=== PATIENT | female | born 1960 | race Caucasian/White ===

== ENCOUNTER 2018-05-13 22:49 | Inpatient (IN) ==
[2018-05-14] MEDS ORDERED: fentaNYL Citrate Inj 100 MCG/2 ML Ampul ONE (02:14)
[2018-05-14] MEDS ORDERED: Bisacodyl 10 MG Supp RECTAL PRN (03:55)
[2018-05-14] MEDS ORDERED: Acetaminophen 325 MG Tablet PO PRN (03:56)
[2018-05-14] MEDS ORDERED: Labetalol HCl Inj 100 MG/20 ML Vial IV.PUSH PRN (04:00)
[2018-05-14] MEDS ORDERED: Chlorhexidine Gluconate 2% 1 Pack (2 Cloths) TOPICAL PRN (04:00)
[2018-05-14] MEDS ORDERED: niCARdipine Inj 25 MG in Sodium Chlor 0.9% Inj 240 ML IV.CONT PRN (04:00)
[2018-05-14] MEDS ORDERED: Dextrose 50% in Water 50 ML Vial IV.PUSH PRN ×2 (04:00→04:05)
[2018-05-14] MEDS ORDERED: Morphine Inj 4 MG/ML Vial IV.PUSH PRN (04:45)
[2018-05-14] MEDS: Sod Chloride 0.9% Inj 1,000 ML IV.CONT SCH ×2 (07:00→15:49)
[2018-05-14 07:02] LABS: Alanine Aminotransferase 18 U/L (10-53); Albumin 3.2 g/dL (3.4-5.0); Anion Gap 10 meq/L (5-15); Aspartate Aminotransferase 22 U/L (15-37); Blood Urea Nitrogen 12 mg/dL (7-18); Calcium 8.1 mg/dL (8.5-10.1); Carbon Dioxide 23.3 meq/L (21.0-32.0); Chloride 111 meq/L (98-107); Cholesterol 191 mg/dL (120-200); Glomerular Filtration Rate Greater Than 89 mL/min (>89); Glucose,Random 87 mg/dL (74-106); Magnesium 1.9 mg/dL (1.5-2.5); Potassium 4.1 meq/L (3.5-5.1); Sodium 144 meq/L (136-145); Triglycerides 223 mg/dL (42-150)
[2018-05-14 07:04] LABS: Alkaline Phosphatase 56 U/L (45-117); Chol/HDL Ratio 4.84 Ratio; HDL Cholesterol 39.4 mg/dL (40.0-60.0); LDL Cholesterol,Calculated 107 mg/dL (0-99); Total Protein 6.6 g/dL (6.4-8.2)
[2018-05-14] MEDS: Senna/Docusate Sodium 8.6/50 MG Tablet PO SCH ×2 (08:47→22:37)
[2018-05-14 12:00] LABS: Baso # (Auto) 0.1 th/mm3 (0.0-0.2); Eos # (Auto) 0.1 th/mm3 (0.0-0.4); Eos % (Auto) 0.9 % (0.0-4.0); Hematocrit 46.9 % (35.0-46.0); Hemoglobin 15.5 gm/dL (11.6-15.3); Lymph # (Auto) 2.3 th/mm3 (1.0-4.8); Lymph % (Auto) 18.3 % (9.0-44.0); Mean Corpuscular HGB Conc 33.1 % (32.0-36.0); Mean Corpuscular Volume 90.5 fL (80.0-100.0); Mean Platelet Volume 7.3 fL (7.0-11.0); Mono # (Auto) 0.7 th/mm3 (0.0-0.9); Mono % (Auto) 5.2 % (0.0-8.0); Neut # (Auto) 9.4 th/mm3 (1.8-7.7); Neut % (Auto) 74.6 % (16.0-70.0); Platelet Count 267 th/mm3 (150-450); Red Blood Count 5.18 mil/mm3 (4.00-5.30); White Blood Count 12.6 th/mm3 (4.0-11.0)
[2018-05-14 12:13] LABS: Activated Partial Thrombo Time 26.2 sec (24.3-30.1); INR 1.1 Ratio; Prothrombin Time 10.9 sec (9.8-11.6)
[2018-05-14 12:17] LABS: CKMB Percent 1.8 % (0.0-4.0); Creatine Kinase MB 7.1 ng/mL (0.5-3.6)
[2018-05-14] MEDS: Insulin NovoLOG Aspart Correctional Sugar Inj SQ SCH ×3 (12:54→17:11)
[2018-05-14 14:21] LABS: Chol/HDL Ratio 3.98 Ratio; HDL Cholesterol 48.7 mg/dL (40.0-60.0)
[2018-05-14 14:27] LABS: Thyroid Stimulating Hormone 0.544 uIU/mL (0.358-3.740)
--- NOTE | 2018-05-14 17:09 | P.PNIM ---
Subjective Interval history: Pt was brought in last night after acute onset of left facial droop, difficulty with speech and left sided weakness Pt was found to have a right MCA occlusion and pt was given TPA and admitted to [facility] Today she is moving all extremities, denies any weakness. Her speech is fluent Pt was signed out to the [facility] today Physical Exam Vital signs: Vital Signs 05/14/18 04:19 05/14/18 07:00 05/14/18 08:00 Temperature 98.5 F 98.5 F Pulse Rate 81 100 H Respiratory Rate 19 16 Blood Pressure 120/54 L 96/42 L Pulse Oximetry 97 05/14/18 10:00 05/14/18 14:00 Temperature Pulse Rate 74 Respiratory Rate 20 Blood Pressure 95/74 L Pulse Oximetry 100 Intake & Output 05/13/18 05/14/18 05/14/18 18:59 06:59 18:59 Intake Total 770 / 770 Balance 770 / 770 Weight 74.4 kg Intake: IV 770 / 770 NS Inj 1,000 ML @ 84 mls/hr IV. 770 / 770 CONT .[id number] [facility] Rx#:[id number] Other: Weight On Admission 74.4 kg Narrative: General: NAD, AAOx3 Chest: CTA Cardiac: Regular Abd: +BS, soft ND/NT Ext: No edema Neuro: HURST, speech fluent, strength equal bilaterally in upper and lower extremities - Urinary Catheter Management Indwelling Urethral Catheter Cath placed during this visit: yes, but has since been removed by the nurse Reason for continuing: Decision to DC catheter Removal date: 05/15/18 Removal time: 10:30 Results - Labs CBC & Chem 7: 05/15/18 06:30 05/15/18 06:30 Laboratory Results - last 24 hr 05/13/18 05/13/18 05/14/18 22:35 22:35 06:20 WBC 10.2 RBC 5.31 H Hgb 16.4 H POC Hgb 16.3 H Hct 48.2 H POC Hct 48.0 H MCV 90.8 MCH 30.9 MCHC 34.0 RDW 13.2 Plt Count 282 MPV 7.3 Neut % (Auto) 40.3 Lymph % (Auto) 49.4 H [place] % (Auto) 5.9 Eos % (Auto) 3.1 Baso % (Auto) 1.3 Neut # (Auto) 4.1 Lymph # (Auto) 5.0 H [place] # (Auto) 0.6 Eos # (Auto) 0.3 Baso # (Auto) 0.1 CBC Comment AUTO DIFF WBC Differential Differential Comment ESR PT INR APTT POC Sodium 141 Sodium POC Potassium 4.8 Potassium POC Chloride 104 Chloride Carbon Dioxide Anion Gap BUN POC BUN 17 Creatinine POC Creatinine 1.0 Estimated GFR POC Glucose 96 Random Glucose Lactic Acid Calcium Phosphorus Magnesium Total Bilirubin Cancelled Direct Bilirubin Cancelled Indirect Bilirubin Cancelled AST Cancelled ALT Cancelled Alkaline Phosphatase Cancelled Ammonia Total Creatine Kinase 389 H CK-MB (CK-2) 7.1 H CK-MB (CK-2) % 1.8 Troponin I Total Protein Cancelled Albumin Cancelled Triglycerides Cholesterol LDL Cholesterol, Calc HDL Cholesterol Cholesterol/HDL Ratio TSH 05/14/18 05/14/18 05/14/18 06:20 06:20 11:41 WBC RBC Hgb POC Hgb Hct POC Hct MCV MCH MCHC RDW Plt Count MPV Neut % (Auto) Lymph % (Auto) [place] % (Auto) Eos % (Auto) Baso % (Auto) Neut # (Auto) Lymph # (Auto) [place] # (Auto) Eos # (Auto) Baso # (Auto) CBC Comment WBC Differential Differential Comment ESR PT INR APTT POC Sodium Sodium 144 POC Potassium Potassium 4.1 POC Chloride Chloride 111 H Carbon Dioxide 23.3 Anion Gap 10 BUN 12 POC BUN Creatinine 0.61 POC Creatinine Estimated GFR Greater than 89 POC Glucose Random Glucose 87 Lactic Acid 1.2 Calcium 8.1 L Phosphorus 4.0 Magnesium 1.9 Total Bilirubin 0.3 Direct Bilirubin Indirect Bilirubin AST 22 ALT 18 Alkaline Phosphatase 56 Ammonia 15 Total Creatine Kinase CK-MB (CK-2) CK-MB (CK-2) % Troponin I Total Protein 6.6 Albumin 3.2 L Triglycerides 223 H Cholesterol 191 LDL Cholesterol, Calc 107 H HDL Cholesterol 39.4 L Cholesterol/HDL Ratio 4.84 TSH 05/14/18 05/14/18 05/14/18 11:41 11:41 11:41 WBC 12.6 H RBC 5.18 Hgb 15.5 H POC Hgb Hct 46.9 H POC Hct MCV 90.5 MCH 30.0 MCHC 33.1 RDW 13.0 Plt Count 267 MPV 7.3 Neut % (Auto) 74.6 H Lymph % (Auto) 18.3 [place] % (Auto) 5.2 Eos % (Auto) 0.9 Baso % (Auto) 1.0 Neut # (Auto) 9.4 H Lymph # (Auto) 2.3 [place] # (Auto) 0.7 Eos # (Auto) 0.1 Baso # (Auto) 0.1 CBC Comment WBC Differential . Differential Comment Auto diff final ESR 9 PT 10.9 INR 1.1 APTT 26.2 POC Sodium Sodium POC Potassium Potassium POC Chloride Chloride Carbon Dioxide Anion Gap BUN POC BUN Creatinine POC Creatinine Estimated GFR POC Glucose Random Glucose Lactic Acid Calcium Phosphorus Magnesium Total Bilirubin Direct Bilirubin Indirect Bilirubin AST ALT Alkaline Phosphatase Ammonia Total Creatine Kinase CK-MB (CK-2) CK-MB (CK-2) % Troponin I Total Protein Albumin Triglycerides Cholesterol LDL Cholesterol, Calc HDL Cholesterol Cholesterol/HDL Ratio TSH 05/14/18 05/14/18 11:41 11:41 WBC RBC Hgb POC Hgb Hct POC Hct MCV MCH MCHC RDW Plt Count MPV Neut % (Auto) Lymph % (Auto) [place] % (Auto) Eos % (Auto) Baso % (Auto) Neut # (Auto) Lymph # (Auto) [place] # (Auto) Eos # (Auto) Baso # (Auto) CBC Comment WBC Differential Differential Comment ESR PT INR APTT POC Sodium Sodium POC Potassium Potassium POC Chloride Chloride Carbon Dioxide Anion Gap BUN POC BUN Creatinine POC Creatinine Estimated GFR POC Glucose Random Glucose Lactic Acid Calcium Phosphorus Magnesium Total Bilirubin Direct Bilirubin Indirect Bilirubin AST ALT Alkaline Phosphatase Ammonia Total Creatine Kinase CK-MB (CK-2) CK-MB (CK-2) % Troponin I Less than 0.02 L Total Protein Albumin Triglycerides 112 Cholesterol 194 LDL Cholesterol, Calc 123 H HDL Cholesterol 48.7 Cholesterol/HDL Ratio 3.98 TSH 0.544 Assessment and Plan - Assessment (1) CVA (cerebral vascular accident) Code(s): I63.9 - Cerebral infarction, unspecified Status: Acute Plan: Right MCA CVA - Pt is a 57 y/o female with hypertension, hyperlipidemia, ongoing tobaccoism and alcohol abuse. She was admitted on 05/13/18 after being found by a friend with acute onset of left-sided weakness, facial droop and dysarthria. Patient was drinking alcohol that night and reportedly smelled of alcohol at the admission. She - CT brain (05/13) --> no acute intracranial findings. - CT angiogram of the brain (05/13) --> a right MCA occlusion 1.6 cm from takeoff. - Neurology was consulted. - Pt was given Alteplase 6.8 mg bolus followed by 51.1 mg and admitted to [facility]. - Carotid Doppler ordered - 2D echocardiogram ordered - Hemoglobin A1c is pending - Lipid panel reviewed, Triglycerides 223, LDL is 107 - ASA 325mg daily - Goal systolic blood pressure less than 180, diastolic blood pressure less than 105 - Neuro checks. - Seizure precautions - MRI/MRA brain ordered EtOH Abuse - Pt reports that she drinks around 4 alcoholic mixed drinks every Tuesday but otherwise does not drink alcohol - Pt was given vitamin bag in [facility] and then given thiamine, folate and multivitamin daily - Monitor for withdrawal/DTs - Ativan PRN HTN - BP has been running low/normal - PRN BP control to maintain goal systolic blood pressure less than 180, diastolic blood pressure less than 105 - Pt takes Lisinopril 10mg daily at home Hyperlipidemia - Start statin (2) ETOH abuse Code(s): F10.10 - Alcohol abuse, uncomplicated Status: Chronic (3) HTN (hypertension) Code(s): I10 - Essential (primary) hypertension Status: Chronic (4) Hyperlipidemia Code(s): E78.5 - Hyperlipidemia, unspecified Status: Chronic (5) Tobacco abuse Code(s): Z72.0 - Tobacco use Status: Chronic - Attending Attestation Patient examined. Assessment and plan formulated with Cristin Copeland PA-C. I agree with the above. Progress Note: Quality - VTE Deep Vein Thrombosis/Pulmonary Embolism Present on Admission: No (1) CVA (cerebral vascular accident) Qualifiers: Precerebral and cerebral artery: middle cerebral artery Laterality of affected vessel: right
--- NOTE | 2018-05-15 00:05 | ECG ---
Date Performed: 05/14/2018 Time Performed: 09:12:09 PTAGE: 57 years EKG: Sinus rhythm LOW QRS VOLTAGE IN PRECORDIAL LEADS POSSIBLE INFERIOR MYOCARDIAL INFARCTION , OF INDETERMINATE AGE A BNORMAL ECG PREVIOUS TRACING : 05/13/2018 23.22 Since the previous tracing, no significant change noted DOCTOR: Renato Hester Interpretating Date/Time 05/15/2018 00:04:40
[2018-05-15 06:55] LABS: Baso # (Auto) 0.1 th/mm3 (0.0-0.2); Eos # (Auto) 0.1 th/mm3 (0.0-0.4); Hemoglobin 14.5 gm/dL (11.6-15.3); Lymph # (Auto) 1.6 th/mm3 (1.0-4.8); Lymph % (Auto) 22.2 % (9.0-44.0); Mean Corpuscular HGB Conc 33.8 % (32.0-36.0); Mean Corpuscular Hemoglobin 30.4 pg (27.0-34.0); Mean Platelet Volume 7.4 fL (7.0-11.0); Mono # (Auto) 0.6 th/mm3 (0.0-0.9); Mono % (Auto) 9.1 % (0.0-8.0); Neut # (Auto) 4.6 th/mm3 (1.8-7.7); Neut % (Auto) 65.7 % (16.0-70.0); Platelet Count 241 th/mm3 (150-450); Red Blood Count 4.78 mil/mm3 (4.00-5.30)
--- NOTE | 2018-05-15 08:15 | P.PNNEU ---
Subjective Subjective Comments: No acute events reported sr Active Medications: Active Medications Generic Name Dose Route Start Last Admin Trade Name Freq PRN Reason Stop Dose Admin Acetaminophen 650 mg 05/14/18 03:56 Tylenol PO Q6H PRN PAIN 1-10 AND/OR FEVER >101F Hydrocodone Bitart/Acetaminophen 1 tab 05/14/18 03:56 Wever 5/325 PO Q4H PRN PAIN SCALE 1 TO 5 Al Hydroxide/Mg Hydroxide 30 ml 05/14/18 03:55 Milk Of Magnesia Liq PO Q12H PRN Mild Constipation Albuterol 2.5 mg 05/14/18 06:00 Albuterol Neb (Prn) NEB Q2HR NEB PRN SHORTNESS OF BREATH Aspirin 325 mg 05/15/18 02:10 Ecotrin PO DAILY [facility] Bisacodyl 10 mg 05/14/18 03:55 Dulcolax Supp RECTAL DAILY PRN SEVERE CONSITIPATION Chlorhexidine Gluconate 3 pack 05/14/18 04:00 Chlorhexidine 2% Cloth TOPICAL 05/19/18 03:59 DAILY@0400 [facility] Chlorhexidine Gluconate 3 pack 05/14/18 04:00 Chlorhexidine 2% Cloth TOPICAL 05/19/18 03:59 DAILY@0400 PRN Extra cloth needed Dextrose 50 ml 05/14/18 04:05 D50w Vial IV.PUSH UNSCH PRN PER HYPOGLYCEMIA PROTOCOL Enalaprilat 1.25 mg 05/14/18 04:00 Vasotec Inj IV.PUSH Q4H PRN SBP > 180, DBP > 105 Glucagon 1 mg 05/14/18 04:05 Glucagon Inj OTHER PRN PRN for Hypoglycemia Protocol Sodium Chloride 1,000 mls @ 84 mls/hr 05/14/18 04:00 05/14/18 15:49 Ns Inj IV.CONT 84 mls/hr .[id number] [facility] Administration Nicardipine HCl 25 mg/ Sodium 250 mls @ 50 mls/hr 05/14/18 04:00 Chloride IV.CONT TITRATE PRN Per Protocol Protocol 5 MG/HR Insulin Aspart 0 unit 05/14/18 06:00 05/14/18 17:11 Novolog Insulin Suppl Scale Inj SQ Not Given Q6HR [facility] Protocol Labetalol HCl 10 mg 05/14/18 04:00 Trandate Inj IV.PUSH Q2H PRN SBP>180, DBP>100, HR>65 Lactulose 30 ml 05/14/18 03:55 Lactulose Liq PO DAILY PRN SEVERE CONSITIPATION Lorazepam 1 mg 05/14/18 18:09 Ativan Inj IV.PUSH Q4H PRN AGITATION AND/OR HALLUCINATION Morphine Sulfate 2 mg 05/14/18 04:45 Morphine Inj IV.PUSH Q2H PRN PAIN SCALE 6 TO 10 Ondansetron HCl 4 mg 05/14/18 04:45 Zofran Odt PO Q6H PRN NAUSEA OR VOMITING Pantoprazole Sodium 40 mg 05/14/18 09:00 05/14/18 08:47 Protonix PO 40 mg DAILY [facility] Administration Senna/Docusate Sodium 1 tab 05/14/18 09:00 05/14/18 22:37 Rona-Colace PO Not Given BID [facility] Sennosides 17.2 mg 05/14/18 03:55 Senokot PO Q12H PRN Moderate Constipation Sodium Chloride 2 ml 05/14/18 09:00 05/14/18 22:38 Ns Flush IV.FLUSH Not Given BID [facility] Sodium Chloride 2 ml 05/14/18 03:55 Ns Flush IV.FLUSH PRN PRN FLUSH AFTER USING IV ACCESS Allergies/Adverse Reactions: Allergies Allergy/AdvReac Type Severity Reaction Status Date / Time No Known Allergies Allergy Unverified 05/14/18 03:30 Physical Exam Vital signs: Vital Signs 05/14/18 10:00 05/14/18 14:00 05/14/18 18:00 Temperature 98.9 F Pulse Rate 74 84 Respiratory Rate 20 19 Blood Pressure 95/74 L 133/78 Pulse Oximetry 100 05/14/18 20:00 05/14/18 22:00 05/15/18 00:00 Temperature 98.0 F 98.1 F Pulse Rate 73 75 77 Respiratory Rate 15 22 Blood Pressure 142/62 H 137/63 Pulse Oximetry 05/15/18 02:00 05/15/18 04:00 05/15/18 06:00 Temperature 98.0 F Pulse Rate 81 77 82 Respiratory Rate 20 Blood Pressure 120/60 Pulse Oximetry Intake & Output 05/14/18 05/15/18 05/15/18 18:59 06:59 18:59 Intake Total 770 / 770 Output Total 0 / 0 1300 / 1300 Balance 770 / 770 -1300 / -1300 Intake: IV 770 / 770 NS Inj 1,000 ML @ 84 mls/hr IV. 770 / 770 CONT .[id number] [facility] Rx#:[id number] Output: Urine 1000 / 1000 Stool 0 / 0 300 / 300 Narrative: alert awake moves all well disinhibited still some left arm dss left neglect Objective Laboratory Results - last 24 hr 05/14/18 05/14/18 05/14/18 06:20 11:41 11:41 WBC RBC Hgb Hct MCV MCH MCHC RDW Plt Count MPV Neut % (Auto) Lymph % (Auto) [place] % (Auto) Eos % (Auto) Baso % (Auto) Neut # (Auto) Lymph # (Auto) [place] # (Auto) Eos # (Auto) Baso # (Auto) WBC Differential Differential Comment ESR PT 10.9 INR 1.1 APTT 26.2 POC Glucose Lactic Acid 1.2 CK-MB (CK-2) 7.1 H CK-MB (CK-2) % 1.8 Troponin I Triglycerides Cholesterol LDL Cholesterol, Calc HDL Cholesterol Cholesterol/HDL Ratio TSH 05/14/18 05/14/18 05/14/18 11:41 11:41 11:41 WBC 12.6 H RBC 5.18 Hgb 15.5 H Hct 46.9 H MCV 90.5 MCH 30.0 MCHC 33.1 RDW 13.0 Plt Count 267 MPV 7.3 Neut % (Auto) 74.6 H Lymph % (Auto) 18.3 [place] % (Auto) 5.2 Eos % (Auto) 0.9 Baso % (Auto) 1.0 Neut # (Auto) 9.4 H Lymph # (Auto) 2.3 [place] # (Auto) 0.7 Eos # (Auto) 0.1 Baso # (Auto) 0.1 WBC Differential . Differential Comment Auto diff final ESR 9 PT INR APTT POC Glucose Lactic Acid CK-MB (CK-2) CK-MB (CK-2) % Troponin I Less than 0.02 L Triglycerides Cholesterol LDL Cholesterol, Calc HDL Cholesterol Cholesterol/HDL Ratio TSH 0.544 05/14/18 05/14/18 05/15/18 11:41 17:08 06:30 WBC 7.0 RBC 4.78 Hgb 14.5 Hct 43.0 MCV 90.0 MCH 30.4 MCHC 33.8 RDW 13.0 Plt Count 241 MPV 7.4 Neut % (Auto) 65.7 Lymph % (Auto) 22.2 [place] % (Auto) 9.1 H Eos % (Auto) 2.0 Baso % (Auto) 1.0 Neut # (Auto) 4.6 Lymph # (Auto) 1.6 [place] # (Auto) 0.6 Eos # (Auto) 0.1 Baso # (Auto) 0.1 WBC Differential . Differential Comment Auto diff final ESR PT INR APTT POC Glucose 110 Lactic Acid CK-MB (CK-2) CK-MB (CK-2) % Troponin I Triglycerides 112 Cholesterol 194 LDL Cholesterol, Calc 123 H HDL Cholesterol 48.7 Cholesterol/HDL Ratio 3.98 TSH 05/15/18 06:30 WBC RBC Hgb Hct MCV MCH MCHC RDW Plt Count MPV Neut % (Auto) Lymph % (Auto) [place] % (Auto) Eos % (Auto) Baso % (Auto) Neut # (Auto) Lymph # (Auto) [place] # (Auto) Eos # (Auto) Baso # (Auto) WBC Differential Differential Comment ESR PT INR APTT POC Glucose Lactic Acid 0.6 CK-MB (CK-2) CK-MB (CK-2) % Troponin I Triglycerides Cholesterol LDL Cholesterol, Calc HDL Cholesterol Cholesterol/HDL Ratio TSH Review/Management - Review/Management Plan: imp r mca clot cleared on asa needs statin started by med team mri/a echo holter hypercoag pend trop neg call me later with echo and mri results
--- NOTE | 2018-05-15 08:40 | MB ---
cc: Goran Harden MD DATE: 05/14/2018 HISTORY OF PRESENT ILLNESS: A 57-year-old left-handed woman with hypertension. Otherwise, she has been very healthy. She does not take an aspirin a day and she came in as a stroke alert last evening, had fallen down, although she was quite intoxicated with alcohol with left-sided weakness. Her NIH stroke scale was 13. As such, she had a CT scan of the brain done, which was negative. TPA was started. A CTA showed a right MCA clot and she was sent to interventional. MEDICATIONS AT HOME: Lisinopril. ALLERGIES: NO KNOWN DRUG ALLERGIES. REVIEW OF SYSTEMS: She denies any diabetes, hypercholesterolemia, [place], stent, angioplasty, AFib, Coumadin, chest pain, palpitations, renal, hepatic, pulmonary disease, thyroid disease, lupus, ulcer, cancer, seizure, stroke. SOCIAL HISTORY: She is a smoker and I have asked her to quit. She is not a drinker, she says regularly. She drinks about once a week, but she says at times so drunk she might fall down. Lives with her fiance. [place] insurance. Drives in her car and goes to different businesses. FAMILY HISTORY: Positive for cancer and also in her daughter cancer who with White sarcoma. Negative for seizure or stroke, possibly some carotid disease in her father. DATA: CTA of the brain did show an occlusion of the right middle cerebral artery. EKG shows sinus rhythm. I did talk with Dr. Castelan this morning who did the case and he said she did have the right MCA clot and he was able to extract that and everything cleared and good flow beyond that. PHYSICAL EXAMINATION: VITAL SIGNS: She has been in sinus rhythm. The vital signs 111/80, pulse of 100. NECK: There are no carotid bruits. HEART: Regular rhythm. I did not detect a murmur. NEUROLOGIC: Pupils are equal. Visual abdi full. Extraocular movements intact without nystagmus. Face is symmetric with normal sensation. Tongue was midline. There is no drift. Normal strength in upper and lower extremities bilaterally. DTRs are trace throughout. Toes downgoing bilaterally. Pinprick was intact throughout. With double simultaneous stimuli she neglected the left side. Not ataxic on [id number]. Speech is fluent. She is not aphasic. She is oriented x3, a little disinhibited. LABORATORY DATA: CBC is normal. Basic metabolic profile essentially normal. LFTs normal. CPK was 389. Ammonia level normal. LDL cholesterol 107. CURRENT MEDICATIONS: She is on Tylenol, hydrocodone p.r.n. IMAGING STUDIES: CT of the brain I reviewed shows a lot of white matter changes bilaterally. CTA does not appear to have any major carotid disease. There is some calcification, appears down at the origin of the common carotid artery. There was an abrupt occlusion at the distal portion of the middle cerebral artery on the right side at that time. Arteriogram is not available on the current system. ASSESSMENT AND PLAN: Right middle cerebral artery infarct. We will have to do a stroke workup and treat her just with an aspirin for right now. Depending on what we find for the further workup. MD JAYA Dawson/LUZ , 08:52 AM , 09:15 AM
[2018-05-15] MEDS: Chlorhexidine Gluconate 2% 1 Pack (2 Cloths) TOPICAL SCH ×2 (08:43→08:47)
[2018-05-15] MEDS: Sod Chloride 0.9% Inj 1,000 ML IV.CONT SCH ×2 (08:46→14:59)
[2018-05-15] MEDS: Senna/Docusate Sodium 8.6/50 MG Tablet PO SCH ×2 (08:48→22:05)
[2018-05-15 08:52] LABS: Alanine Aminotransferase 18 U/L (10-53); Alkaline Phosphatase 57 U/L (45-117); Anion Gap 10 meq/L (5-15); Aspartate Aminotransferase 22 U/L (15-37); Blood Urea Nitrogen 9 mg/dL (7-18); Calcium 8.5 mg/dL (8.5-10.1); Carbon Dioxide 25.4 meq/L (21.0-32.0); Chloride 109 meq/L (98-107); Glomerular Filtration Rate Greater Than 89 mL/min (>89); Glucose,Random 118 mg/dL (74-106); Magnesium 1.9 mg/dL (1.5-2.5); Phosphorus 2.8 mg/dL (2.5-4.9); Potassium 4.1 meq/L (3.5-5.1); Sodium 144 meq/L (136-145); Total Protein 6.4 g/dL (6.4-8.2)
--- NOTE | 2018-05-15 10:08 | MR ---
EXAM DATE: 05/15/2018 9:29 AM EDT AGE/SEX: 57 years / Female INDICATIONS: Left sided weakness. CLINICAL DATA: This is the patient's initial encounter. Patient reports that signs and symptoms have been present for 1 day and indicates a pain score of 0/10. MEDICAL/SURGICAL HISTORY: Hypertension. section. Cholecystectomy. Left total hip arth roplasty [place] [facility] [place]. . TECHNIQUE: Multiplanar, multisequence examination of the brain was performed without and with 15 ml O mniscan (gadodiamide) contrast as a single exam dose. FINDINGS: Evolving right temporal parietal stroke. No evidence of associated hemorrhage. No evidence of brain m ass. Slight stable developmental asymmetry of the ventricles. No abnormal extra-axial fluid accumulat ion. Left hemisphere is intact and unremarkable. Posterior fossa and brainstem structures are unremar kable. No abnormal parenchymal contrast enhancement identified. Normal enhancement in the intracrania l vascular structures. CONCLUSION: Evolving right temporal parietal stroke Electronically signed by: Quirino Castelan MD 05/15/2018 10:07 AM EDT
--- NOTE | 2018-05-15 10:31 | MR ---
EXAM DATE: 05/15/2018 9:30 AM EDT AGE/SEX: 57 years / Female INDICATIONS: Left sided weakness. CLINICAL DATA: This is the patient's initial encounter. Patient reports that signs and symptoms have been present for 1 day and indicates a pain score of 0/10. MEDICAL/SURGICAL HISTORY: Hypertension. Cholecystectomy. section. Left total hip arth roplasty. [place] [facility] [place]. . TECHNIQUE: 3D [id number] MRA was performed. Source images, multiplanar STS MIP, and 3D volum e MIP reconstructions were reviewed. FINDINGS: There is moderate stenotic narrowing at the right MCA bifurcation just distal to the anterior tempora l branch. Branch vessels beyond this are intact and unremarkable with essentially normal flow related enhancement. The [place] of [place] vessels are otherwise intact and unremarkable. There is no evidenc e of aneurysm or vascular malformation. CONCLUSION: Residual or recurrent stenotic narrowing at the right MCA bifurcation which appears moderate in sever ity Electronically signed by: Quirino Castelan MD 05/15/2018 10:30 AM EDT
[2018-05-15 11:14] LABS: Bacteria,Urine Rare /hpf; Bilirubin,Urine Negative (Negative); Clarity,Urine Clear (Clear); Color,Urine Yellow (Yellw/Straw); Glucose,Urine (UA) Negative (Negative); Leukocyte Esterase,Urine Moderate (Negative); Mucus,Urine Few /lpf (Occasional); Nitrite,Urine Negative (Negative); Specific Gravity,Urine 1.006 (1.002-1.035)
[2018-05-15 11:15] LABS: Activated Partial Thrombo Time 26.5 sec (24.3-30.1); INR 1.1 Ratio; Prothrombin Time 10.9 sec (9.8-11.6)
[2018-05-15] MEDS ORDERED: Gadodiamide PF Inj 287 MG/ML 5 ML Syringe (for RAD MRI) IV.PUSH ONE (11:41)
[2018-05-15 14:00] LABS: Amphetamine Screen,Urine Neg (Neg); Barbiturate Screen,Urine Neg (Neg); Cannabinoid Screen,Urine Neg (Neg); Cocaine Screen,Urine Neg (Neg); Opiate Screen,Urine Neg (Neg)
[2018-05-15] MEDS: Insulin NovoLOG Aspart Correctional Sugar Inj SQ SCH ×3 (14:56→17:14)
--- NOTE | 2018-05-15 17:44 | P.PNIM ---
Subjective Interval history: No new complaints. Physical Exam Vital signs: Vital Signs 05/14/18 18:00 05/14/18 20:00 05/14/18 22:00 Temperature 98.9 F 98.0 F Pulse Rate 84 73 75 Respiratory Rate 19 15 Blood Pressure 133/78 142/62 H Pulse Oximetry 05/15/18 00:00 05/15/18 02:00 05/15/18 04:00 Temperature 98.1 F 98.0 F Pulse Rate 77 81 77 Respiratory Rate 22 20 Blood Pressure 137/63 120/60 Pulse Oximetry 05/15/18 06:00 05/15/18 08:00 05/15/18 08:40 Temperature 99.9 F H Pulse Rate 82 75 Respiratory Rate 19 Blood Pressure 110/74 Pulse Oximetry 96 96 05/15/18 12:00 05/15/18 16:00 Temperature 99.8 F H 99.8 F H Pulse Rate 74 66 Respiratory Rate 20 21 Blood Pressure 138/64 154/85 H Pulse Oximetry 97 96 Intake & Output 05/14/18 05/15/18 05/15/18 18:59 06:59 18:59 Intake Total 770 / 770 Output Total 0 / 0 1300 / 1300 1200 / 1200 Balance 770 / 770 -1300 / -1300 -1200 / -1200 Intake: IV 770 / 770 NS Inj 1,000 ML @ 84 mls/hr IV. 770 / 770 CONT .[id number] [facility] Rx#:[id number] Output: Urine 1000 / 1000 Stool 0 / 0 300 / 300 Urine Amount (Catheter) 1200 / 1200 Indwelling Urethral Catheter 1200 / 1200 Narrative: GENERAL: This is a well-nourished, well-developed patient, in no apparent distress. CARDIOVASCULAR: Regular rate and rhythm without murmurs, gallops, or rubs. RESPIRATORY: Clear to auscultation. Breath sounds equal bilaterally. No wheezes , rales, or rhonchi. GASTROINTESTINAL: Abdomen soft, non-tender, nondistended. Normal active bowel sounds MUSCULOSKELETAL: Extremities without clubbing, cyanosis, or edema. NEURO: Alert & Oriented x4 to person, place, time, situation. Moves all ext x4 - Urinary Catheter Management Indwelling Urethral Catheter Cath placed during this visit: yes, but has since been removed by the nurse Removal date: 05/15/18 Removal time: 10:30 Results - Labs CBC & Chem 7: 05/15/18 06:30 05/15/18 06:30 Laboratory Results - last 24 hr 05/15/18 05/15/18 05/15/18 06:30 06:30 06:30 WBC 7.0 RBC 4.78 Hgb 14.5 Hct 43.0 MCV 90.0 MCH 30.4 MCHC 33.8 RDW 13.0 Plt Count 241 MPV 7.4 Neut % (Auto) 65.7 Lymph % (Auto) 22.2 Giles % (Auto) 9.1 H Eos % (Auto) 2.0 Baso % (Auto) 1.0 Neut # (Auto) 4.6 Lymph # (Auto) 1.6 Giles # (Auto) 0.6 Eos # (Auto) 0.1 Baso # (Auto) 0.1 WBC Differential . Differential Comment Auto diff final PT INR APTT Sodium 144 Potassium 4.1 Chloride 109 H Carbon Dioxide 25.4 Anion Gap 10 BUN 9 Creatinine 0.61 Estimated GFR Greater than 89 Random Glucose 118 H Lactic Acid 0.6 Calcium 8.5 Phosphorus 2.8 D Magnesium 1.9 Total Bilirubin 0.8 AST 22 ALT 18 Alkaline Phosphatase 57 Total Protein 6.4 Total Protein (PEP) Albumin 3.0 L Urine Color Urine Clarity Urine pH Ur Specific [place] Urine Protein Urine Glucose (UA) Urine Ketones Urine Occult Blood Urine Nitrate Urine Bilirubin Urine Urobilinogen Ur Leukocyte Esterase Urine RBC Urine WBC Urine Bacteria Urine Mucus Micro UA Comment Urine Culture Comments Urine Opiates Screen Ur Barbiturates Screen Ur Amphetamines Screen U Benzodiazepines Scrn Urine Cocaine Screen U Cannabinoids Screen 05/15/18 05/15/18 05/15/18 08:34 08:34 10:40 WBC RBC Hgb Hct MCV MCH MCHC RDW Plt Count MPV Neut % (Auto) Lymph % (Auto) Giles % (Auto) Eos % (Auto) Baso % (Auto) Neut # (Auto) Lymph # (Auto) Giles # (Auto) Eos # (Auto) Baso # (Auto) WBC Differential Differential Comment PT 10.9 INR 1.1 APTT 26.5 Sodium Potassium Chloride Carbon Dioxide Anion Gap BUN Creatinine Estimated GFR Random Glucose Lactic Acid Calcium Phosphorus Magnesium Total Bilirubin AST ALT Alkaline Phosphatase Total Protein Total Protein (PEP) Albumin Urine Color Yellow Urine Clarity Clear Urine pH 7.0 Ur Specific [place] 1.006 Urine Protein Negative Urine Glucose (UA) Negative Urine Ketones Negative Urine Occult Blood Small H Urine Nitrate Negative Urine Bilirubin Negative Urine Urobilinogen Less than 2 Ur Leukocyte Esterase Moderate H Urine RBC 4 H Urine WBC 11 H Urine Bacteria Rare H Urine Mucus Few H Micro UA Comment Cath-culture ind Urine Culture Comments Cath-cult indicated Urine Opiates Screen Neg Ur Barbiturates Screen Neg Ur Amphetamines Screen Neg U Benzodiazepines Scrn Neg Urine Cocaine Screen Neg U Cannabinoids Screen Neg 05/15/18 10:40 WBC RBC Hgb Hct MCV MCH MCHC RDW Plt Count MPV Neut % (Auto) Lymph % (Auto) Giles % (Auto) Eos % (Auto) Baso % (Auto) Neut # (Auto) Lymph # (Auto) Giles # (Auto) Eos # (Auto) Baso # (Auto) WBC Differential Differential Comment PT INR APTT Sodium Potassium Chloride Carbon Dioxide Anion Gap BUN Creatinine Estimated GFR Random Glucose Lactic Acid Calcium Phosphorus Magnesium Total Bilirubin AST ALT Alkaline Phosphatase Total Protein Total Protein (PEP) 6.6 Albumin Urine Color Urine Clarity Urine pH Ur Specific [place] Urine Protein Urine Glucose (UA) Urine Ketones Urine Occult Blood Urine Nitrate Urine Bilirubin Urine Urobilinogen Ur Leukocyte Esterase Urine RBC Urine WBC Urine Bacteria Urine Mucus Micro UA Comment Urine Culture Comments Urine Opiates Screen Ur Barbiturates Screen Ur Amphetamines Screen U Benzodiazepines Scrn Urine Cocaine Screen U Cannabinoids Screen - Imaging Impressions Head MRI 05/15/18 00:00 CONCLUSION: Evolving right temporal parietal stroke Head MRA 05/15/18 00:00 CONCLUSION: Residual or recurrent stenotic narrowing at the right MCA bifurcation which appears moderate in severity Head CT 05/15/18 01:00 CONCLUSION: 1. Negative noncontrast CT brain. No evidence of acute hemorrhage. Assessment and Plan - Assessment (1) CVA (cerebral vascular accident) Code(s): I63.9 - Cerebral infarction, unspecified Status: Acute Plan: Right MCA CVA - Pt is a 57 y/o female with hypertension, hyperlipidemia, ongoing tobaccoism and alcohol abuse. She was admitted on 05/13/18 after being found by a friend with acute onset of left-sided weakness, facial droop and dysarthria. Patient was drinking alcohol that night and reportedly smelled of alcohol at the admission. She - CT brain (05/13) --> no acute intracranial findings. - CT angiogram of the brain (6/30) --> a right MCA occlusion 1.6 cm from takeoff. - Neurology was consulted. - Pt was given Alteplase 6.8 mg bolus followed by 51.1 mg and admitted to [facility]. - Carotid Doppler ordered --> pending - 2D echocardiogram ordered --> pending - Hemoglobin A1c --> pending - Lipid panel reviewed, Triglycerides 223, LDL is 107 - Goal systolic blood pressure less than 180, diastolic blood pressure less than 105 - Neuro checks. - Seizure precautions - MRI brain (05/15) --> evolving right temporal/parietal CVA - MRA brain (05/15) --> moderate stenotic narrowing at the right MCA bifurcation - ASA 325mg daily - EtOH Abuse - Pt reports that she drinks around 4 alcoholic mixed drinks every Tuesday but otherwise does not drink alcohol - Pt was given vitamin bag in [facility] and then given thiamine, folate and multivitamin daily - Monitor for withdrawal/DTs - Ativan PRN HTN - BP has been running low/normal - PRN BP control to maintain goal systolic blood pressure less than 180, diastolic blood pressure less than 105 - Pt takes Lisinopril 10mg daily at home Hyperlipidemia - Start statin (2) ETOH abuse Code(s): F10.10 - Alcohol abuse, uncomplicated Status: Chronic (3) HTN (hypertension) Code(s): I10 - Essential (primary) hypertension Status: Chronic (4) Hyperlipidemia Code(s): E78.5 - Hyperlipidemia, unspecified Status: Chronic (5) Tobacco abuse Code(s): Z72.0 - Tobacco use Status: Chronic Progress Note: Quality - VTE Deep Vein Thrombosis/Pulmonary Embolism Present on Admission: No (1) CVA (cerebral vascular accident) Qualifiers: Precerebral and cerebral artery: middle cerebral artery Laterality of affected vessel: right
[2018-05-15] MEDS: LORazepam 1 MG Tablet PO PRN (18:31)
[2018-05-15 22:56] LABS: Hemoglobin A1c 5.8 % (4.3-6.0)
[2018-05-16] MEDS: Insulin NovoLOG Aspart Correctional Sugar Inj SQ SCH ×4 (01:15→17:58)
[2018-05-16] MEDS: Sod Chloride 0.9% Inj 1,000 ML IV.CONT SCH ×2 (04:33→15:20)
[2018-05-16] MEDS: Chlorhexidine Gluconate 2% 1 Pack (2 Cloths) TOPICAL SCH (04:34)
[2018-05-16] MEDS: LORazepam 1 MG Tablet PO PRN ×2 (07:30→12:48)
--- NOTE | 2018-05-16 08:24 | P.PNNEU ---
Subjective Subjective Comments: No acute events reported sr Active Medications: Active Medications Generic Name Dose Route Start Last Admin Trade Name Freq PRN Reason Stop Dose Admin Acetaminophen 650 mg 05/14/18 03:56 Tylenol PO Q6H PRN PAIN 1-10 AND/OR FEVER >101F Hydrocodone Bitart/Acetaminophen 1 tab 05/14/18 03:56 [place] 5/325 PO Q4H PRN PAIN SCALE 1 TO 5 Al Hydroxide/Mg Hydroxide 30 ml 05/14/18 03:55 Milk Of Magnesia Liq PO Q12H PRN Mild Constipation Albuterol 2.5 mg 05/14/18 06:00 Albuterol Neb (Prn) NEB Q2HR NEB PRN SHORTNESS OF BREATH Aspirin 325 mg 05/15/18 02:10 05/15/18 08:48 Ecotrin PO 325 mg DAILY DMITRI Administration Atorvastatin Calcium 40 mg 05/15/18 21:00 05/15/18 22:04 Lipitor PO 40 mg HS DMITRI Administration Bisacodyl 10 mg 05/14/18 03:55 Dulcolax Supp RECTAL DAILY PRN SEVERE CONSITIPATION Chlorhexidine Gluconate 3 pack 05/14/18 04:00 05/16/18 04:34 Chlorhexidine 2% Cloth TOPICAL 05/19/18 03:59 Not Given DAILY@0400 [facility] Chlorhexidine Gluconate 3 pack 05/14/18 04:00 Chlorhexidine 2% Cloth TOPICAL 05/19/18 03:59 DAILY@0400 PRN Extra cloth needed Dextrose 50 ml 05/14/18 04:05 D50w Vial IV.PUSH UNSCH PRN PER HYPOGLYCEMIA PROTOCOL Enalaprilat 1.25 mg 05/14/18 04:00 Vasotec Inj IV.PUSH Q4H PRN SBP > 180, DBP > 105 Glucagon 1 mg 05/14/18 04:05 Glucagon Inj OTHER PRN PRN for Hypoglycemia Protocol Sodium Chloride 1,000 mls @ 84 mls/hr 05/14/18 04:00 05/16/18 04:33 Ns Inj IV.CONT Not Given .[id number] [facility] Nicardipine HCl 25 mg/ Sodium 250 mls @ 50 mls/hr 05/14/18 04:00 Chloride IV.CONT TITRATE PRN Per Protocol Protocol 5 MG/HR Insulin Aspart 0 unit 05/14/18 06:00 05/16/18 05:46 Novolog Insulin Suppl Scale Inj SQ Not Given Q6HR [facility] Protocol Labetalol HCl 10 mg 05/14/18 04:00 Trandate Inj IV.PUSH Q2H PRN SBP>180, DBP>100, HR>65 Lactulose 30 ml 05/14/18 03:55 Lactulose Liq PO DAILY PRN SEVERE CONSITIPATION Lorazepam 1 mg 05/14/18 18:09 Ativan Inj IV.PUSH Q4H PRN AGITATION AND/OR HALLUCINATION Lorazepam 1 mg 05/15/18 18:25 05/16/18 07:30 Ativan PO 1 mg Q4H PRN Administration AGITATION Morphine Sulfate 2 mg 05/14/18 04:45 Morphine Inj IV.PUSH Q2H PRN PAIN SCALE 6 TO 10 Nicotine 1 patch 05/15/18 18:30 05/15/18 18:31 Habitrol 21 Mg Patch.24 Hr T-DERMAL 1 patch DAILY DMITRI Administration Ondansetron HCl 4 mg 05/14/18 04:45 Zofran Odt PO Q6H PRN NAUSEA OR VOMITING Pantoprazole Sodium 40 mg 05/14/18 09:00 05/15/18 08:48 Protonix PO 40 mg DAILY DMITRI Administration Patch Removal 1 each 05/16/18 09:00 Remove Old Patch T-DERMAL DAILY [facility] Senna/Docusate Sodium 1 tab 05/14/18 09:00 05/15/18 22:05 Rona-Colace PO Not Given BID [facility] Sennosides 17.2 mg 05/14/18 03:55 Senokot PO Q12H PRN Moderate Constipation Sodium Chloride 2 ml 05/14/18 09:00 05/15/18 22:05 Ns Flush IV.FLUSH Not Given BID [facility] Sodium Chloride 2 ml 05/14/18 03:55 Ns Flush IV.FLUSH PRN PRN FLUSH AFTER USING IV ACCESS Allergies/Adverse Reactions: Allergies Allergy/AdvReac Type Severity Reaction Status Date / Time No Known Allergies Allergy Unverified 05/14/18 03:30 Physical Exam Vital signs: Vital Signs 05/15/18 08:40 05/15/18 12:00 05/15/18 16:00 Temperature 99.8 F H 99.8 F H Pulse Rate 74 66 Respiratory Rate 20 21 Blood Pressure 138/64 154/85 H Pulse Oximetry 96 97 96 05/15/18 20:00 05/15/18 22:47 05/16/18 00:00 Temperature 98.4 F 98.5 F Pulse Rate 72 64 Respiratory Rate 19 Blood Pressure 129/62 115/58 L Pulse Oximetry 95 96 92 L 05/16/18 04:00 Temperature 98.1 F Pulse Rate 63 Respiratory Rate 14 Blood Pressure 99/56 L Pulse Oximetry 91 L Intake & Output 05/15/18 05/16/18 05/16/18 18:59 06:59 18:59 Intake Total 720 / 720 Output Total 1200 / 1200 Balance -1200 / -1200 720 / 720 Weight 73.6 kg Intake: Oral 720 / 720 Output: Urine Amount (Catheter) 1200 / 1200 Indwelling Urethral Catheter 1200 / 1200 Other: # Voids 4 4 Narrative: vff face and speech nl not weak left - Urinary Catheter Management Indwelling Urethral Catheter Cath placed during this visit: yes, but has since been removed by the nurse Reason for continuing: Decision to DC catheter Removal date: 05/15/18 Removal time: 10:30 Objective Laboratory Results - last 24 hr 05/14/18 05/15/18 05/15/18 11:41 06:30 08:34 PT INR APTT Sodium 144 Potassium 4.1 Chloride 109 H Carbon Dioxide 25.4 Anion Gap 10 BUN 9 Creatinine 0.61 Estimated GFR Greater than 89 POC Glucose Random Glucose 118 H Hemoglobin A1c 5.8 Calcium 8.5 Phosphorus 2.8 D Magnesium 1.9 Total Bilirubin 0.8 AST 22 ALT 18 Alkaline Phosphatase 57 Total Protein 6.4 Total Protein (PEP) Albumin 3.0 L Urine Color Yellow Urine Clarity Clear Urine pH 7.0 Ur Specific [place] 1.006 Urine Protein Negative Urine Glucose (UA) Negative Urine Ketones Negative Urine Occult Blood Small H Urine Nitrate Negative Urine Bilirubin Negative Urine Urobilinogen Less than 2 Ur Leukocyte Esterase Moderate H Urine RBC 4 H Urine WBC 11 H Urine Bacteria Rare H Urine Mucus Few H Micro UA Comment Cath-culture ind Urine Culture Comments Cath-cult indicated Urine Opiates Screen Ur Barbiturates Screen Ur Amphetamines Screen U Benzodiazepines Scrn Urine Cocaine Screen U Cannabinoids Screen 05/15/18 05/15/18 05/15/18 08:34 10:40 10:40 PT 10.9 INR 1.1 APTT 26.5 Sodium Potassium Chloride Carbon Dioxide Anion Gap BUN Creatinine Estimated GFR POC Glucose Random Glucose Hemoglobin A1c Calcium Phosphorus Magnesium Total Bilirubin AST ALT Alkaline Phosphatase Total Protein Total Protein (PEP) 6.6 Albumin Urine Color Urine Clarity Urine pH Ur Specific [place] Urine Protein Urine Glucose (UA) Urine Ketones Urine Occult Blood Urine Nitrate Urine Bilirubin Urine Urobilinogen Ur Leukocyte Esterase Urine RBC Urine WBC Urine Bacteria Urine Mucus Micro UA Comment Urine Culture Comments Urine Opiates Screen Neg Ur Barbiturates Screen Neg Ur Amphetamines Screen Neg U Benzodiazepines Scrn Neg Urine Cocaine Screen Neg U Cannabinoids Screen Neg 05/16/18 05/16/18 00:51 05:45 PT INR APTT Sodium Potassium Chloride Carbon Dioxide Anion Gap BUN Creatinine Estimated GFR POC Glucose 122 H 116 H Random Glucose Hemoglobin A1c Calcium Phosphorus Magnesium Total Bilirubin AST ALT Alkaline Phosphatase Total Protein Total Protein (PEP) Albumin Urine Color Urine Clarity Urine pH Ur Specific [place] Urine Protein Urine Glucose (UA) Urine Ketones Urine Occult Blood Urine Nitrate Urine Bilirubin Urine Urobilinogen Ur Leukocyte Esterase Urine RBC Urine WBC Urine Bacteria Urine Mucus Micro UA Comment Urine Culture Comments Urine Opiates Screen Ur Barbiturates Screen Ur Amphetamines Screen U Benzodiazepines Scrn Urine Cocaine Screen U Cannabinoids Screen Review/Management - Review/Management Plan: imp r mca clot cleared on asa needs statin started by med team mri/a echo holter hypercoag pend trop neg call me later with echo and mri results 05/16/18 echo still pend mri large r mca cva if echo neg we should do mau and loop in if that neg will have cards see
[2018-05-16] MEDS: Senna/Docusate Sodium 8.6/50 MG Tablet PO SCH (10:24)
--- NOTE | 2018-05-16 12:13 | US ---
EXAM DATE: 05/16/2018 12:02 PM EDT AGE/SEX: 57 years / Female INDICATIONS: Cerebrovascular accident. CLINICAL DATA: This is the patient's initial encounter. Patient reports that signs and symptoms have been present for 2 days and indicates a pain score of 0/10. MEDICAL/SURGICAL HISTORY: Hypertension. Glasses. Confusion. Anxiety. Psoriasis. Cholecystectom y. section. COMPARISON: [facility], [facility]A CAROTID ARTERIES W 3D RECON, 05/13/2018. . VELOCITY PARAMETERS: ICA/CCA Ratio: Right 1.8 , Left 1.1 ICA: Right 139 cm/sec, Left 132 cm/sec CCA: Right 77 cm/sec, Left 124 cm/sec ECA: Right 158 cm/sec, Left 162 cm/sec Vertebral: Right 28 cm/sec antegrade, Left 68 cm/sec antegrade FINDINGS: Right Carotid: Mild arteriosclerotic plaque is visualized.The waveforms are within normal limits. Left Carotid: Mild arteriosclerotic plaque is visualized. The waveforms are within normal limits. Other: None. CONCLUSION: 1. There is mild to moderate visible plaque formation in the left mid CCA, bilateral distal CCAs and bilateral carotid bifurcations extending into the internal carotid arteries. Right-sided PSV ratio i s elevated to 1.8. This is most characteristic of a moderate stenosis on the right, probably in the 5 0% range. Electronically signed by: Luan Cook MD 05/16/2018 12:12 PM EDT
--- NOTE | 2018-05-16 13:01 | MB ---
cc: Rakesh Zaman MD DATE: 05/16/2018 INDICATION: Stroke. HISTORY OF PRESENT ILLNESS: This is a 57-year-old female without significant past medical history who presented to the emergency department with acute onset of left facial droop, difficulty with speech and left-sided weakness. The patient was documented with a right middle cerebral arterial occlusion and was given thrombolytic therapy. The patient made a full neurologic recovery. Workup in progress. We are consulted for consideration of transesophageal echocardiogram and implantable loop recorder to rule out cardioembolic etiology. Hypercoagulable panel pending. Also, neurology is consulted. PAST MEDICAL HISTORY: Stroke, hypertension, hyperlipidemia, tobacco abuse. SOCIAL HISTORY: Does report occasional alcohol use, heavy tobacco user. No substance abuse. FAMILY HISTORY: Denies any family history of early coronary disease or sudden cardiac . REVIEW OF SYSTEMS: A 12-point review of systems was performed and is negative unless otherwise as noted in the history of present illness. ALLERGIES: NO KNOWN DRUG ALLERGIES. REVIEW OF SYSTEMS: A 12-point review of systems was performed, negative unless otherwise as noted in history of present illness. PHYSICAL EXAMINATION: VITAL SIGNS: Temperature 99, pulse 77, blood pressure 157/72 mmHg. GENERAL: Alert and oriented x 3 in no acute distress. HEENT: Shows pupils reactive to light and accommodation. Extraocular movements are intact. NECK: No elevation of jugular venous distention. No thyromegaly or lymphadenopathy. No carotid bruits. LUNGS: Clear to auscultation bilaterally. CARDIOVASCULAR: Regular rate and rhythm without murmurs, rubs or gallops. ABDOMEN: Nontender, nondistended with good bowel sounds. No hepatosplenomegaly. EXTREMITIES: Show no clubbing, cyanosis or edema. Good peripheral pulses. NEUROLOGIC: Cranial nerves intact. Motor and sensory grossly intact. LABORATORY DATA: WBC 7.0, hemoglobin 14.5, platelet counts 241. Sodium 144, potassium is 4.1, BUN is 9, creatinine 0.61. ASSESSMENT: Acute right middle cerebral artery stroke. PLAN: We will await a complete neurological workup for carotid ultrasound. Discussed the consideration of a transesophageal echocardiogram with the patient. She does not want to stay in the hospital for 05/17/2018 to have this done. She already ate breakfast this morning. We will consider scheduling that on an outpatient basis. We can make arrangements for a 21-day event monitor as an outpatient rather than proceeding with implantable loop recorder. Continue aggressive medical therapy per neurology recommendations. The patient can be discharged with followup on an outpatient basis. MD JOVITA Skinner/SATYA , 12:43 PM , 12:59 PM
--- NOTE | 2018-05-16 14:44 | P.DS ---
Date of admission: 05/13/18 23:32 Primary care physician: UNKNOWN Attending physician on discharge: Adam Fernandes Anticipated date of discharge: 05/16/18 Brief History from admission: This is a 57-year-old female. Date of admission 05/13/2018. Past medical history includes hypertension, hyperlipidemia, ongoing tobaccoism and alcohol abuse. She was drinking alcohol tonight. Patient presents to [facility] after being found by her friend with acute onset of left-sided weakness and facial droop and dysarthria. Patient was drinking alcohol tonight. She smells of alcohol at the present time. She continues to smoke tobacco. She takes lisinopril 10 mg daily for hypertension. CT brain revealed no acute intracranial findings. CT angiogram of the brain revealed a right MCA occlusion 1.[address] Harden/neurology was notified. Patient received 6.8 mg alteplase followed by 51.1 mg. IR is currently being consulted for possible stent retrieval thrombolyzes. DS: Diagnosis - Discharge Diagnosis (1) CVA (cerebral vascular accident) Status: Acute Diagnosis: Principal (2) ETOH abuse Status: Chronic Diagnosis: Secondary (3) HTN (hypertension) Status: Chronic Diagnosis: Secondary (4) Hyperlipidemia Status: Chronic Diagnosis: Secondary (5) Tobacco abuse Status: Chronic Diagnosis: Secondary DS: Summary Hospital Course: - Assessment (1) CVA (cerebral vascular accident) Code(s): I63.9 - Cerebral infarction, unspecified Status: Acute Plan: Right MCA CVA - Pt is a 57 y/o female with hypertension, hyperlipidemia, ongoing tobaccoism and alcohol abuse. She was admitted on 05/13/18 after being found by a friend with acute onset of left-sided weakness, facial droop and dysarthria. Patient was drinking alcohol that night and reportedly smelled of alcohol at the admission. She - CT brain (05/13) --> no acute intracranial findings. - CT angiogram of the brain (05/13) --> a right MCA occlusion 1.6 cm from takeoff. - Neurology was consulted. - Pt was given Alteplase 6.8 mg bolus followed by 51.1 mg and admitted to [facility]. - Carotid Doppler ordered --> pending - 2D echocardiogram ordered --> pending - Hemoglobin A1c --> pending - Lipid panel reviewed, Triglycerides 223, LDL is 107 - appreciate input from Neurology and Cardiology - MRI brain (05/15) --> evolving right temporal/parietal CVA - MRA brain (05/15) --> moderate stenotic narrowing at the right MCA bifurcation - ASA 325mg daily - Carotid US (05/16) --> NO hemodynamically significant stenosis - Echocardiogram (05/16) --> results pending - Case d/w Cardiology, Dr. Zaman (05/16). Obtain THIAGO outpt. Pt to f/u with Dr. Zaman in 2 weeks - f/u with Neurology, Dr. Harden in 3 weeks - f/u with PCP, Dr. Rosie Bear in 1 week - new medications: ASA, lipitor - see discharge orders - Pt advised no further etoh & no further alcohol EtOH Abuse - Pt reports that she drinks around 4 alcoholic mixed drinks every Tuesday but otherwise does not drink alcohol - Pt was given vitamin bag in ISC and then given thiamine, folate and multivitamin daily - Monitor for withdrawal/DTs - Ativan PRN HTN - BP has been running low/normal - PRN BP control to maintain goal systolic blood pressure less than 180, diastolic blood pressure less than 105 - Pt takes Lisinopril 10mg daily at home. continue upon discharge. Hyperlipidemia - Start statin (2) ETOH abuse Code(s): F10.10 - Alcohol abuse, uncomplicated Status: Chronic (3) HTN (hypertension) Code(s): I10 - Essential (primary) hypertension Status: Chronic (4) Hyperlipidemia Code(s): E78.5 - Hyperlipidemia, unspecified Status: Chronic (5) Tobacco abuse Code(s): Z72.0 - Tobacco use Status: Chronic - Time Spent with Patient Total time spent providing and/or coordinating discharge services: Greater than 30 minutes - Quality: Stroke Pt Provided Written Stroke Discharge Instructions: Patient given written information - Quality: VTE Deep Vein Thrombosis/Pulmonary Embolism Present on Admission: No Exam Vital signs: Vital Signs 05/15/18 16:00 05/15/18 20:00 05/15/18 22:47 Temperature 99.8 F H 98.4 F Pulse Rate 66 72 Respiratory Rate 21 Blood Pressure 154/85 H 129/62 Pulse Oximetry 96 95 96 05/16/18 00:00 05/16/18 04:00 05/16/18 08:00 Temperature 98.5 F 98.1 F 98.9 F Pulse Rate 64 63 70 Respiratory Rate 19 14 16 Blood Pressure 115/58 L 99/56 L Pulse Oximetry 92 L 91 L 96 05/16/18 12:00 Temperature 99.0 F Pulse Rate 77 Respiratory Rate 23 Blood Pressure 157/72 H Pulse Oximetry 97 Intake & Output 05/15/18 05/16/18 05/16/18 18:59 06:59 18:59 Intake Total 720 / 720 Output Total 1200 / 1200 Balance -1200 / -1200 720 / 720 Weight 73.6 kg Intake: Oral 720 / 720 Output: Urine Amount (Catheter) 1200 / 1200 Indwelling Urethral Catheter 1200 / 1200 Other: # Voids 4 4 Narrative: GENERAL: This is a well-nourished, well-developed patient, in no apparent distress. CARDIOVASCULAR: Regular rate and rhythm without murmurs, gallops, or rubs. RESPIRATORY: Clear to auscultation. Breath sounds equal bilaterally. No wheezes , rales, or rhonchi. GASTROINTESTINAL: Abdomen soft, non-tender, nondistended. Normal active bowel sounds MUSCULOSKELETAL: Extremities without clubbing, cyanosis, or edema. NEURO: Alert & Oriented x4 to person, place, time, situation. Moves all ext x4 Results Procedures completed during hospitalization: see above Pending studies at discharge: transthoracic echocardiogram done, results pending. Pt to f/u with Cardiology, Dr. Rakesh Zaman, for outpt THIAGO Labs on day of discharge: Labs from last 24 hours 05/16/18 05/16/18 05/14/18 05:45 00:51 11:41 POC Glucose 116 H 122 H Hemoglobin A1c 5.8 Preliminary micro results at discharge 05/15/18 08:34 Urine Culture - Preliminary Catheterized Urine No growth in 24 hours - Impressions ITS Impressions Head MRI 05/15/18 00:00 CONCLUSION: Evolving right temporal parietal stroke Head MRA 05/15/18 00:00 CONCLUSION: Residual or recurrent stenotic narrowing at the right MCA bifurcation which appears moderate in severity Head CT 05/15/18 01:00 CONCLUSION: 1. Negative noncontrast CT brain. No evidence of acute hemorrhage. Carotid Doppler Study 05/16/18 00:00 CONCLUSION: 1. There is mild to moderate visible plaque formation in the left mid CCA, bilateral distal CCAs and bilateral carotid bifurcations extending into the internal carotid arteries. Right-sided PSV ratio is elevated to 1.8. This is most characteristic of a moderate stenosis on the right, probably in the 50% range. Discharge Plan - Discharge Disposition Patient Disposition: 01 Discharge Home - Discharge Condition Condition: Good - Discharge Order Discharge Orders: Cardiology Clear for Discharge (Routine); Ordered 05/16/18 Ordered By: Rakesh Zaman - Discharge Details Anticipated Discharge Date: 05/16/18 - Physicians Team Primary Care Provider: UNKNOWN, Attending Provider: Adam Fernandes Other Providers: Goran Harden MD ; Milo Chau MD ; Adam Fernandes, DO - Rxs /Orders / Referrals /Forms Prescriptions: New aspirin 325 mg Tablet,Delayed Release (Dr/Ec) 325 mg PO DAILY RF: 0 atorvastatin 40 mg Tablet 40 mg PO HS Qty: 30 RF: 0 Referrals: Goran Harden MD [Physician] - See Instructions (F/U WITH DR. HARDEN IN 3 WEEKS. ) Rosie Bear M.D. [FAMILY MEDICINE] - See Instructions (F/U WITH DR ROSIE BEAR IN ONE WEEK) Rakesh Zaman MD [Physician] - See Instructions (F/U WITH DR. ZAMAN IN 2 WEEKS) - Discharge Instructions Additional Instructions: NO SMOKING NO ALCOHOL
--- NOTE | 2018-05-18 10:03 | ECHRPT ---
Indication: CVA, EVAL PFO CONCLUSIONS Normal left ventricular size. Wall thickness is normal. The left ventricular systolic function is normal with an estimated ejection fraction in the range of 55-60%. Trace mitral valve regurgitation. There is trace tricuspid valve regurgitation. The estimated pulmonary arterial pressure is 18 mmHg. Normal atrial septal thickness. The interatrial septum not well visualized. No atrial level shunt is demonstrated by color flow Doppler interrogation. BP: / HR: Rhythm: MEASUREMENTS (Male / Female) Normal Values Technical Quality: 2D ECHO LV Diastolic Diameter PLAX 4.8 cm 4.2 - 5.9 / 3.9 - 5.3 cm LV Systolic Diameter PLAX 3.5 cm IVS Diastolic Thickness 1.1 cm 0.6 - 1.0 / 0.6 - 0.9 cm LVPW Diastolic Thickness 0.8 cm 0.6 - 1.0 / 0.6 - 0.9 cm LV Relative Wall Thickness 0.4 RV Internal Dim ED PLAX 2.1 cm DOPPLER Mitral E Point Velocity 60.9 cm/s Mitral A Point Velocity 89.4 cm/s Mitral E to A Ratio 0.7 TR Peak Velocity 137.0 cm/s TR Peak Gradient 7.5 mmHg Right Atrial Pressure 10.0 mmHg Pulmonary Artery Systolic Pressu 17.5 mmHg Right Ventricular Systolic Press 17.5 mmHg FINDINGS LEFT VENTRICLE Normal left ventricular size. Wall thickness is normal. The left ventricular systolic function is normal with an estimated ejection fraction in the range of 55-60%. RIGHT VENTRICLE Normal right ventricular size and systolic function. LEFT ATRIUM The left atrial size is normal. RIGHT ATRIUM The right atrial size is normal. ATRIAL SEPTUM Normal atrial septal thickness. The interatrial septum not well visualized. No atrial level shunt is demonstrated by color flow Doppler interrogation. AORTA The aortic root and proximal ascending aorta are normal in size on limited imaging. MITRAL VALVE Mitral annular calcification is present. Trace mitral valve regurgitation. AORTIC VALVE Trileaflet aortic valve. No aortic valve stenosis or regurgitation. TRICUSPID VALVE There is trace tricuspid valve regurgitation. The estimated pulmonary arterial pressure is 18 mmHg. PULMONARY VALVE No pulmonary valve regurgitation or stenosis. VESSELS The inferior vena cava is normal in size. PERICARDIUM No pericardial effusion. Rakesh Zaman MD, FACC (Electronically Signed) Final Date:18 May 2018 10:02
[2018-05-18 16:35] LABS: Factor V Leiden Mutation Negative (Negative); Protein C Antigen 82 % (70-150); Protein C Functional 83 % (70 - 150)
--- NOTE | 2018-05-19 09:31 | HM ---
Date Performed: 05/15/2018 Time Performed: 21:32:00 HOOKUP DATE: 05/15/18 09:32:00 PM Mon ANALYSIS START TIME: 05/15/2018 9:37:00 PM ANALYSIS END TIME: 05/16/2018 6:05:21 PM PATIENT AGE: 57 PATIENT HEIGHT PATIENT WEIGHT DRUG LIST PATIENT DIAGNOSIS TEST NARRATIVE: The patient's average heart rate was 72 BPM. No episodes of tachycardia wer e noted. Heart rates less than 50 BPM were noted < 1% of the time. No pauses exceeding 2.0 secon ds were noted. 78 ventricular ectopics, which represented < 1% of the total beat count, were note d. The highest ventricular ectopic frequency occurred from 02:00 AM to 03:00 AM Tue. During this ti me 13 VE(s) occurred. Ventricular ectopics were observed as 76 isolated beat(s) and as 1 couplet(s). No runs were noted. 131 supraventricular ectopics, which represented < 1% of the total beat cou nt, were noted. The highest supraventricular ectopic frequency occurred from 04:00 PM to 05:00 PM Tu e. During this time 20 SVE(s) occurred. No episodes of ST depression (defined as -1.0 mm or more ) were noted in channel 1. No episodes of ST depression (defined as -1.0 mm or more) were noted in c mervatnel 2. No episodes of ST depression (defined as -1.0 mm or more) were noted in channel 3. TEST INTERPRETATION: Sinus rhythm PVCs PACs Signed by : Jonha henson
[2018-05-19 13:52] LABS: Factor VIII (8) Activity 83 (50-180)
[2018-05-20 03:49] LABS: Dil Russell Viper Venom Conf ( ND (NEGATIVE); Dil Russell Viper Venom Time M ND (CORRECTED); Lupus Anticoagulant PTT Screen 33 seconds (< OR = 40)
--- NOTE | 2018-06-02 16:25 | IR ---
EXAM DATE: 05/15/2018 9:10 AM EDT AGE/SEX: 57 years / Female INDICATIONS: Patient with a history of stroke. CLINICAL DATA: This is the patient's initial encounter. Patient reports that signs and symptoms have been present for 1 day and indicates a pain score of 2/10. MEDICAL/SURGICAL HISTORY: . . COMPARISON: [facility], CTA CAROTID ARTERIES W 3D RECON, 05/13/2018. . FLUORO TIME (min): 5.3 IMAGE SERIES: 8 ACCESS SITE: Right femoral artery CONTRAST (cc): 30 Visipaque (iodixanol) Anesthesia and pain control was provided by the Anesthesia department. DEVICE(S): Right MCA 060 ALBA reperfusion Right common femoral artery Angio-Seal 6F . . TIMELINE: Interventional Team Called: 1157 Interventional Team Arrived: 1210 Interventional Team Ready 1210 Patient Arrival: 1227 Groin Puncture: 1256 Recanalization: 0115 PROCEDURE : 1. Ultrasound-guided puncture of the right common femoral artery access site. 2. Angiography of the right common femoral artery access site prior to closure device. 3 Percutaneous closure of the right common femoral artery access site. 4. Selective catheterization, right common carotid artery 5. Angiography of the right carotid cervical and cerebral circulation 6. Subselective catheterization, right middle cerebral artery branches 7. Transcatheter embolectomy, right middle cerebral artery 8. Follow-up arteriography, right internal carotid artery The risks, benefits and alternatives to the procedure were explained and verbal and written consent w as obtained. The site was prepped in sterile fashion. Full sterile technique was used, including cap, mask, sterile gloves and gown and a large sterile sheet. Hand hygiene and 2% chlorhexidine and/or be tadine/alcohol prep was utilized per protocol for cutaneous antisepsis. The skin and subcutaneous tis sues were infiltrated with local anesthetic solution. Sterile gel and sterile probe cover were utili zed for ultrasound guidance. With ultrasound and fluoroscopic guidance the selected artery was punctured and a vascular sheath was placed. The ultrasound images depicting access guidance were saved and stored PACS for permanent rec ord. Angiography of the common femoral artery was performed for evaluation prior to percutaneous clos ure device placement. A diagnostic catheter was placed into the prescribed common carotid artery and angiography was perfor med over the head to confirm vessel occlusion. Subsequent to this a guidewire was placed into the dis derrek cervical internal carotid artery and a guide catheter was placed to the level of the skull base. Through this a large bore suction catheter was placed in the face of the clot and suction was perform ed for 130 seconds. With suction still applied the catheter was slowly removed with concomitant sheat h aspiration performed. Followup angiography demonstrates restorationist of flow with TICI 3 flow. The sheath was then removed and arteriotomy closed with the Angio-Seal device. The patient tolerated the procedure well and was taken to intensive care in good stable condition. FINDINGS: Arteriography confirms the presence of total occlusion at the right MCA bifurcation with mi nimal collateral perfusion via temporal branches. Moderate atherosclerotic irregularity at the right carotid bifurcation with less than 50% associated stenotic narrowing. CONCLUSION: Uncomplicated catheter directed stroke treatment with right middle cerebral artery embolectomy as treasure cribed in detail above Electronically signed by: Quirino Castelan MD 05/15/2018 10:03 AM EDT
== END 2018-05-16 18:07 | disposition home or self-care (01) ==
LOC: NEDA 23:32 → N03 05-14 02:58
PROVIDERS: ADMIT Hospitalist; ATTEND Hospitalist